=== PATIENT | female | born 1985 | race African-American/Black ===

== ENCOUNTER → 2023-01-13 14:28 | Outpatient (CLI) | payer BC, SELFPAY ==
--- NOTE | ~2023-01-13 | MR_ITS ---
EXAMINATION: MR abdomen wo/w con INDICATION: Splenic lesion TECHNIQUE: Coronal SSFSE ARC, WATER:coronal LAVA-FLEX, Coronal 2D FIESTA FatSat, Axial SSFSE BH ARC, Axial 3D DualEcho BH, Axial SSFSE-IR, Axial DWI b=500, Axial 2D FIESTA FatSat, pre and dynamic postco ntrast Axial LAVA ARC, postcontrast Coronal In and Opposed phase LAVA FLEX COMPARISON: None available CONTRAST: Multihance, 15 cc FINDINGS: The liver, pancreas, gallbladder, and adrenal glands are normal. The kidneys are unremarkab le. There are multiple (at least 11) T1 isointense, T2 hypointense lesions of the spleen which measur e up to 1.2 cm. Many of the lesions demonstrate slow, progressive enhancement after contrast administ ration. None demonstrate restricted diffusion. There are no pathologically enlarged abdominal lymph n odes. There are no dilated loops of bowel. IMPRESSION: 1. Multiple, probably benign splenic lesions such as hemangiomas, lymphangiomas, or less likely old g ranulomatous disease. Follow-up MRI without and with contrast in six months is recommended. Reviewed, dictated and finalized at location B. IMPRESSION: 1. Multiple, probably benign splenic lesions such as hemangiomas, lymphangiomas , or less likely old granulomatous disease. Follow-up MRI without and with cont rast in six months is recommended.
== END ==
PROVIDERS: PCP Nurse Practitioner Family
DX: D73.89 Other diseases of spleen (principal)
CPT/HCPCS: 74183; A9577